=== PATIENT | male | born 1960 | race Caucasian/White ===

== ENCOUNTER 2024-01-07 19:54 | Inpatient (IN) | payer OTHER ==
[2024-01-07] MEDS ORDERED: methylPREDNISolone NA SUCC 125 MG/2 ML VIAL ONE (20:58)
[2024-01-07] MEDS ORDERED: PANTOPRAZOLE SODIUM 80 MG/200 ML BAG IVPB ONE (20:58)
[2024-01-07] MEDS ORDERED: CEFTRIAXONE 1 GM/50 ML BAG ONE (20:59)
[2024-01-07 21:00] LABS: BASO % 1.2 % (0-2.0); EOS % 4.5 % (0-4.5); LYMPH % 5.6 % (8-40); MCH 23.4 pg (25.7-33.7); MEAN CELL VOLUME 75.3 fl (80-96); MEAN PLT VOLUME 7.4 fl (7.5-11.1); MONO % 5.8 % (3.8-10.2); NEUT % 82.9 % (42.8-82.8); PLATELET COUNT 144 10^3/uL (134-434); RBC 3.84 M/mm3 (4.00-5.60); WHITE BLOOD COUNT 8.7 K/mm3 (4.0-10.0)
[2024-01-07 21:06] LABS: ADD RBC MORPHOLOGY YES
[2024-01-07] MEDS: methylPREDNISolone NA SUCC 125 MG/2 ML VIAL IVPUSH ONE (21:07)
[2024-01-07 21:10] LABS: INR 1.62 (0.83-1.09)
[2024-01-07 21:13] LABS: ACTIVATED PTT 36.7 SECONDS (25.2-36.5)
[2024-01-07 21:17] LABS: POTASSIUM 3.9 mmol/L (3.5-5.1)
[2024-01-07 21:18] LABS: CALCIUM 8.2 mg/dL (8.5-10.1)
[2024-01-07 21:19] LABS: ALBUMIN 3.1 g/dl (3.4-5.0)
[2024-01-07 21:24] LABS: BILIRUBIN,TOTAL 0.7 mg/dL (0.2-1); TOT PROT 8.3 g/dl (6.4-8.2)
[2024-01-07] MEDS: CEFTRIAXONE 1,000 MG in DEXTROSE 5%-WATER - 50 ML IVPB ONE (21:43)
[2024-01-07 21:44] LABS: ANISOCYTOSIS 2+; MACROCYTOSIS 0; OVALOCYTE 1+; TEAR DROP CELLS 1+
[2024-01-07] MEDS ORDERED: diphenhydrAMINE HCL 25 MG CAPSULE (FP) PO ONE (21:44)
[2024-01-07] MEDS: diphenhydrAMINE HCL 50 MG CAPSULE PO ONE (21:45)
[2024-01-07] MEDS: PANTOPRAZOLE SODIUM 40 MG VIAL IVPUSH ONE (22:06)
[2024-01-08 05:14] VITALS: BMI 28.7
[2024-01-08 06:45] LABS: RETICULOCYTES 2.78 % (0.5-1.5)
[2024-01-08] MEDS: INSULIN (NOVOLOG) ASPART 100 UNITS/ML 10ML VIAL SQ ONE ×2 (06:57→09:01)
[2024-01-08] MEDS: INSULIN ASPART SLIDING SCALE (NOVOLOG) 1 VIAL SQ SCH (07:32)
[2024-01-08] MEDS: CARVEDILOL 3.125 MG TABLET (FP) PO SCH (09:08)
[2024-01-08] MEDS: PANTOPRAZOLE SODIUM 40 MG VIAL IVPUSH SCH (09:08)
[2024-01-08 09:57] LABS: HEMATOCRIT 26.5 % (35.4-49); HEMOGLOBIN 8.3 GM/dL (11.7-16.9); MCHC 31.5 g/dl (32.0-35.9); MEAN CELL VOLUME 76.3 fl (80-96); MEAN PLT VOLUME 8.2 fl (7.5-11.1); PLATELET COUNT 113 10^3/uL (134-434); RBC 3.47 M/mm3 (4.00-5.60); RDW 20.6 % (11.9-15.9); WHITE BLOOD COUNT 4.8 K/mm3 (4.0-10.0)
[2024-01-08 10:47] LABS: POTASSIUM 3.9 mmol/L (3.5-5.1)
[2024-01-08 10:51] LABS: ALBUMIN 3.2 g/dl (3.4-5.0); MAGNESIUM 2.1 mg/dL (1.8-2.4)
[2024-01-08 10:54] LABS: CREATININE 1.1 mg/dL (0.55-1.3); PHOSPHOROUS 3.2 mg/dL (2.5-4.9)
[2024-01-08 10:55] LABS: BILIRUBIN,TOTAL 0.5 mg/dL (0.2-1); TOT PROT 8.2 g/dl (6.4-8.2)
[2024-01-08] MEDS: SPIRONOLACTONE 25 MG TABLET PO SCH (11:06)
[2024-01-08] MEDS: CEFTRIAXONE 1 G/50 ML PREMIX 50 ML IVPB SCH (17:33)
[2024-01-08] MEDS: INSULIN (LEVEMIR) 100 UNITS/ML UNITS SQ SCH (21:45)
[2024-01-08] MEDS ORDERED: PATIENT'S OWN MEDICATION (NON-FORMULARY) (Insulin Glargine,Hum.Rec.Anlog 100 UNITS/ML Vial SQ SCH (22:00)
[2024-01-08] MEDS ORDERED: PANTOPRAZOLE SODIUM 40 MG VIAL IVPUSH SCH (22:00)
[2024-01-09 08:06] LABS: BASO % 0.5 % (0-2.0); EOS % 1.9 % (0-4.5); HEMATOCRIT 26.1 % (35.4-49); HEMOGLOBIN 8.2 GM/dL (11.7-16.9); LYMPH % 10.7 % (8-40); MCH 23.7 pg (25.7-33.7); MCHC 31.4 g/dl (32.0-35.9); MEAN CELL VOLUME 75.7 fl (80-96); MEAN PLT VOLUME 7.7 fl (7.5-11.1); MONO % 8.8 % (3.8-10.2); NEUT % 78.1 % (42.8-82.8); PLATELET COUNT 116 10^3/uL (134-434); RBC 3.45 M/mm3 (4.00-5.60); RDW 20.9 % (11.9-15.9); WHITE BLOOD COUNT 5.3 K/mm3 (4.0-10.0)
[2024-01-09 08:21] LABS: POTASSIUM 3.8 mmol/L (3.5-5.1)
[2024-01-09 08:25] LABS: CALCIUM 8.5 mg/dL (8.5-10.1)
[2024-01-09 08:29] LABS: CREATININE 0.8 mg/dL (0.55-1.3)
[2024-01-09] MEDS: PEG 3350/NA SULF BICARB CL/KCL 4000 ML SOLN.RECON PO ONE (16:25)
[2024-01-10 09:00] LABS: BASO % 0.3 % (0-2.0); EOS % 2.9 % (0-4.5); HEMATOCRIT 26.9 % (35.4-49); HEMOGLOBIN 8.7 GM/dL (11.7-16.9); LYMPH % 6.3 % (8-40); MCH 24.1 pg (25.7-33.7); MCHC 32.2 g/dl (32.0-35.9); MEAN CELL VOLUME 74.9 fl (80-96); MEAN PLT VOLUME 7.3 fl (7.5-11.1); MONO % 8.3 % (3.8-10.2); NEUT % 82.2 % (42.8-82.8); PLATELET COUNT 117 10^3/uL (134-434); RBC 3.59 M/mm3 (4.00-5.60); RDW 21.2 % (11.9-15.9); WHITE BLOOD COUNT 6.3 K/mm3 (4.0-10.0)
[2024-01-10 09:22] LABS: POTASSIUM 3.7 mmol/L (3.5-5.1)
[2024-01-10 09:28] LABS: BLOOD UREA NITROGEN 5.8 mg/dL (7-18); CALCIUM 8.8 mg/dL (8.5-10.1)
[2024-01-10 09:32] LABS: CREATININE 0.8 mg/dL (0.55-1.3)
[2024-01-10] MEDS: PANTOPRAZOLE 40 MG TABLET PO SCH (11:54)
[2024-01-10] MEDS: LORATADINE 10 MG TABLET PO ONE (11:54)
[2024-01-10 14:42] VITALS: RESP 18
[2024-01-10] MEDS ORDERED: hydrOXYzine HCL 10 MG/5 ML UNIT DOSE CUPS PO PRN (15:43)
[2024-01-10] MEDS: ACETAMINOPHEN 325 MG TABLET (FP) PO PRN (22:14)
[2024-01-11 08:39] LABS: BASO % 0.3 % (0-2.0); EOS % 4.4 % (0-4.5); HEMATOCRIT 26.5 % (35.4-49); HEMOGLOBIN 8.7 GM/dL (11.7-16.9); LYMPH % 9.3 % (8-40); MCH 24.4 pg (25.7-33.7); MCHC 32.7 g/dl (32.0-35.9); MEAN CELL VOLUME 74.4 fl (80-96); MEAN PLT VOLUME 8.4 fl (7.5-11.1); MONO % 9.6 % (3.8-10.2); NEUT % 76.4 % (42.8-82.8); PLATELET COUNT 93 10^3/uL (134-434); RBC 3.56 M/mm3 (4.00-5.60); WHITE BLOOD COUNT 4.9 K/mm3 (4.0-10.0)
[2024-01-11 08:56] LABS: POTASSIUM 4.1 mmol/L (3.5-5.1)
[2024-01-11 08:57] LABS: CALCIUM 8.5 mg/dL (8.5-10.1)
[2024-01-11 08:58] LABS: ALBUMIN 2.9 g/dl (3.4-5.0); BLOOD UREA NITROGEN 9.2 mg/dL (7-18); MAGNESIUM 1.7 mg/dL (1.8-2.4)
[2024-01-11 09:01] LABS: CREATININE 0.8 mg/dL (0.55-1.3)
[2024-01-11 09:02] LABS: BILIRUBIN,TOTAL 0.6 mg/dL (0.2-1); TOT PROT 7.5 g/dl (6.4-8.2)
[2024-01-11 09:51] LABS: ANISOCYTOSIS 3+; MACROCYTOSIS 0
[2024-01-11] MEDS ORDERED: LORATADINE 10 MG TABLET PO SCH (10:00)
[2024-01-11] MEDS: MAGNESIUM OXIDE 400 MG TABLET (FP) PO ONE (11:20)
[2024-01-11] MEDS: MINERAL OIL/PET HY-PHL TOPICAL OINTMENT 454 GM JAR TP SCH (12:05)
[2024-01-11] MEDS: hydrOXYzine HCL 10 MG/5 ML UNIT DOSE CUPS PO PRN (12:48)
[2024-01-12] MEDS: diphenhydrAMINE HCL 25 MG CAPSULE (FP) PO ONE (00:44)
[2024-01-12 06:55] VITALS: BP 132/79; PULSE 101; TEMP 98.1
== END 2024-01-12 10:30 | disposition home or self-care (01) | DRG 253 ==
LOC: JER 19:54 → JERBED 21:59 → J7W 01-08 04:48
PROVIDERS: ADMIT Internal Medicine; ATTEND Nurse Practitioner Family
PROC: 0DJ08ZZ Inspection of Upper Intestinal Tract, Via Natural or Artificial Opening Endoscopic (ICD-10-PCS; 2024-01-10)
PROC: 0DJD8ZZ Inspection of Lower Intestinal Tract, Via Natural or Artificial Opening Endoscopic (ICD-10-PCS; principal; 2024-01-10 08:00)
DX: K92.2 Gastrointestinal hemorrhage, unspecified (principal); K76.6 Portal hypertension; D69.6 Thrombocytopenia, unspecified; E11.65 Type 2 diabetes mellitus with hyperglycemia; E78.5 Hyperlipidemia, unspecified; I10 Essential (primary) hypertension; I25.10 Atherosclerotic heart disease of native coronary artery without angina pectoris; K31.89 Other diseases of stomach and duodenum; K70.30 Alcoholic cirrhosis of liver without ascites; K57.30 Diverticulosis of large intestine without perforation or abscess without bleeding; K63.5 Polyp of colon; K64.8 Other hemorrhoids
CPT/HCPCS: 0241U-QW; 36415; 71045-TC-FY; 74176-TC; 80048; 80053; 82272; 82728; 82962; 83036; 83540; 83550; 83735; 84100; 84484; 85025; 85027; 85045; 85610; 85730; 86850; 86870; 86880; 86900; 86901; 86902; 93005; 93010; 99285-25